=== PATIENT | female | born 2005 | race Caucasian/White ===

== ENCOUNTER 2025-01-14 01:10 | Outpatient (CLI) | payer OTHER, SELFPAY | END 2025-01-14 01:11 | disposition home or self-care (01) | LOC: AMB 01-17 11:32 | PROVIDERS: Visit Provider Family Medicine | DX: R41.82 Altered mental status, unspecified (principal); R11.10 Vomiting, unspecified | CPT/HCPCS: A0425; A0427 ==

== ENCOUNTER 2025-01-14 01:33 | Emergency (ER) | payer OTHER, SELFPAY ==
--- OUTSIDE RECORDS SUMMARY | 2024-12-14 15:00 | XMS_ITS | Encounter Summary ---
Author Organization [employer] Address [address], [place] [address] Care Team Providers Care Assistant Manager Pt Name Role Phone Michelle BAINS MD, Rory Saxena Primary Care Provider [phone] Reason for Visit * Reason Comments Annual Exam Encounter Details Date Type Department Care Team (Latest Contact Info) Description 12/14/2024 3:00 PM CDT Office Visit [facility] [address] [place] [address] Daniella Roque, SOFTWARE ENGINEER, JAVASCRIPT PROGRAMMER [address] [place] [address] Encounter for gynecological examination without abnormal finding (Primary Dx); Need for Tdap vaccination; Screening for malignant neoplasm of cervix; Surveillance of previously prescribed contraceptive pill Social History Tobacco Use Types Packs/Day Years Used Date Smoking Tobacco: Never Smokeless Tobacco: Never Comments:no vaping Alcohol Use Standard Drinks/Week Comments Yes 0 (1 standard drink = 0.6 oz pur e alcohol) 3-4 beers per month Comments No Sex and Gender Information Value Date Recorded Sex Assigned at Not on file Legal Sex Female 5:33 AM CDT Gender Identity Not on file Sexual Orientation Not on file Occupation Industry Job Start Date Job End Date student Not on file Not on file Not on file documented as of this encounter Last Filed Vital Signs Vital Sign Reading Time Taken Comments Blood Pressure 98/62 12/14/2024 2:53 PM CDT Pulse 63 12/14/2024 2:53 PM CDT Temperature - - Respiratory Rate - - Oxygen Saturation - - Inhaled Oxygen Concentration - - Weight 71.3 kg (157 lb 3.2 oz) 12/14/2024 2:53 P M CDT Height 165.1 cm (5' 5) 12/14/2024 2:53 PM CDT Body Mass Index 26.16 12/14/2024 2:53 PM CDT documented in this encounter Patient Instructions * Patient Instructions* Daniella Roque, RAMON, JAVASCRIPT PROGRAMMER - 12/14/2024 3:00 PM CDT Images from the original note were not included. Well Visit, Ages 18 to 65: Care Instructions Well visits can help you stay healthy. Your doctor has checked your overall health and may have suggested ways to take good care of yourself. Your doctor also may have recommended tests. You can helpprevent illness with healthy eating, good sleep, vaccinations, regular exercise, and other steps. Get the tests that you and your doctor decide on. Depending on your age and risks, examples might include screening for diabetes; hepatitis C; HIV; and cervical, breast, lung, and colon cancer. Screening helps find diseases before any symptoms appear. Eat healthy foods. Choose fruits, vegetables, whole grains, lean protein, and low-fat dairy foods. Limit saturated fat and reduce salt. Limit alcohol. Men should have no more than 2 drinks a day. Women should have no more than 1. For some people, no alcohol is the best choice. Exercise. Get at least 30 minutes of exercise on most days of the week. Walking can be a good choice. Reach and stay at your healthy weight. This will lower your risk for many health problems. Take care of your mental health. Try to stay connected with friends, family, and community, and find ways to manage stress. If you're feeling depressed or hopeless, talk to someone. A counselor can help. If you don't have acounselor, talk to your doctor. Talk to your doctor if you think you may have a problem with alcohol or drug use. This includes prescription medicines, marijuana, and other drugs. Avoid tobacco and nicotine: Don't smoke, vape, or chew. If you need help quitting, talk to your doctor. Practice safer sex. Getting tested, using condoms or dental dams, and limiting sex partners can help prevent STIs. Use control if it's important to you to prevent . Talk with your doctor about your choices and what might be best for you. Prevent problems where you can. Protect your skin from too much sun, wash your hands, brush your teeth twice a day, and wear a seat belt in the car. Where can you learn more? 1. Go to https://www.[employer]/healthlibrary. 2. Enter P072 in the search box. Current as of: September 14, 2023 Content Version: 14.5 ?? [id number] [employer]. Care instructions adapted under license by your healthcare professional. If you have questions about a medical condition or this instruction, always ask your healthcare professional. [employer] disclaims any warranty or liability for your use of this information. documented in this encounter Progress Notes * Daniella Roque APRN, CNP - 12/14/2024 3:00 PM CDT [facility] CC: Preventative exam SUBJECTIVE: Sylwia Mcdermott is a 19 y.o. who presents for preventive health examination. Current concerns: She is doing well. Continues to like her control pill. Remembers daily. Declines STD testing. Will do first pap smear today. Menses are regular and predictable Sexual activity: sexually active with male partner. Chlamydia Trachomatis STD Date Value Ref Range Status 05/12/2022 Not Detected Not Detected Final N. gonorrhoeae STD Date Value Ref Range Status 05/12/2022 Not Detected Not Detected Final Contraception: oral contraceptives. Nutrition/diet/weight concerns: no concerns . Present exercise habits: exercises moderately elevating heart rate 1-4 times a week.. Urinary Concerns: none Sexual concerns: none Screening Tests: Pap Smear History: 1st pap smear today Mammogram: n/a Lipid panel: Cholesterol Date Value Ref Range Status 2019 148 0 - 199 mg/dL Final HDL Cholesterol Date Value Ref Range Status 2019 55 >=40 mg/dL Final LDL, Calculated Date Value Ref Range Status 2019 81 <130 mg/dL Final Triglyceride Date Value Ref Range Status 2019 59 <=149 mg/dL Final Diabetes screening: No results found for: HGBA1C, [id number] Thyroid Screening: No results found for: TSH The medical, surgical, social and family histories were reviewed and upated. Review Of Systems With the exception of any items noted above, the remainder of the GI and ROS is negative. OBJECTIVE: BP 98/62 (BP Location: Right Arm, BP Cuff Size: Large) Pulse 63 Ht 5' 5 (1.651 m) Wt 157 lb 3.2 oz (71.3 kg) LMP 11/23/2024 (Exact Date) BMI 26.16 kg/m?? GENERAL: Healthy appearing, in no acute distress. Alert, oriented, cooperative throughout the exam.Affect is appropriate. HEENT: Eyes are normal with clear sclerae. Ears are symmetric. NECK: No thyromegaly or lymphadenopathy. No masses or tenderness. BREASTS: Symmetrical, nontender. No dominant masses, skin dimpling, nipple retraction or nipple discharge. No axillary lymphadenopathy. HEART: Regular rate and rhythm without murmurs. LUNGS: Clear to auscultation. Breathing is unlabored. ABDOMEN: Soft, non-tender, without hepatospenomegaly, masses or hernias. SKIN: Warm and dry without malignant appearing lesions. PELVIC EXAM: External genitalia within normal limits. Bartholin's, [place]'s, urethral meatus are allnormal. Normal vaginal mucosa and discharge. Cervix is without lesions. A Pap smear was obtained. RECTAL: rectal exam not indicated EXTREMITIES: Normal without varicosities or edema. ASSESSMENT/PLAN: Sylwia was seen today for annual exam. Diagnoses and all orders for this visit: Encounter for gynecological examination without abnormal finding Need for Tdap vaccination - Tdap Screening for malignant neoplasm of cervix - Cervical Cancer Screening; Obtain Prep&Convy-Lab - Cytology (Pap) Surveillance of previously prescribed contraceptive pill - levonorgestrel-ethinyl estrad (VIENVA) 0.1-20 MG-MCG tablet; Take 1 Tablet by mouth daily. Follow-up in 1 year; sooner as needed if any concerns Mollie R RAMON Roque CNP 12/14/2024, 3:07 PM documented in this encounter Plan of Treatment Not on file documented as of this encounter Procedures Procedure Name Priority Date/Time Associated Diagnosis Comments CYTOLOGY (PAP) Routine 12/14/2024 3:12 PM CDT Screening for malignant neoplasm of cervix documented in this encounter Results * Cytology (Pap) (12/14/2024 3:12 PM CDT) Case Report Pap Case: [id number] Authorizing Provider: Daniella Roque APRN, Collected: 12/14/2024 1512 JAVASCRIPT PROGRAMMER Ordering Location: [facility] Received: 12/14/2024 1558 [facility]etric[facility] ology First Screen: Katelin Elena Specimen: Pap Test, Routine, Cervix/Endocervix 12/29/2024 9:05 AM [facility] Pap Specimen Adequacy Satisfactory for evaluation, endocervical/dominguez sformation zone component present. 12/29/2024 9:05 AM [facility] Pap Interpretation (NILM) Negative for intraepithelial lesion or malignancy. 12/29/2024 9:05 AM [facility] at 0905 CDT Pap Disclaimer The Pap test is a screening test to aid in the detection of cervical and vaginal cancers and their precursor lesions. It is not a diagnostic procedure and should not be used as the sole means of detecting malignancy. Both false-positive and false-negative results may occur. 12/29/2024 9:05 AM [facility] Gross Description The specimen is received in SurePath fixative and properly labeled. 1 Pap-stained SurePath slide is prepared. 12/29/2024 9:05 AM [facility] Embedded Images 9:05 AM [facility] Other Specimen Type ENTIRE ENDOCERVIX / Unknown 12/14/2024 3:12 PM CDT 12/14/2024 3:58 PM CDT Comment:LMP: Patient's last menstrual period was 11/23/2024 (exact date). us Daniella Roque APRN, CNP LAB PATHOLOGY Ana l Result [facility] CLIA: [id number] [address] [id number] documented in this encounter Visit Diagnoses Diagnosis Encounter for gynecological examination without abnormal finding- Primary Routine gynecological examination Need for Tdap vaccination Need for prophylactic vaccination with combined [id number] (DTP) vaccine Screening for malignant neoplasm of cervix Screening for malignant neoplasm of the cervix Surveillance of previously prescribed contraceptive pill documented in this encounter Care Teams Assistant Manager Pt Relationship Specialty Start [place] [address] [facility] [place] [address] PCP - General 08/19/10 documented as of this encounter
--- NOTE | 2025-01-14 01:35 | ED.ALCOHOL ---
HPI - Alcohol General Time Seen by Provider: 01:35 Date Seen: 01/17/25 Chief Complaint: Alcohol/Intoxication Stated Complaint: intoxication Time Seen by Provider: 01/14/25 01:34 Source: patient, EMS, RN notes reviewed and old records reviewed Mode of arrival: EMS Limitations: no limitations History of Present Illness HPI narrative: 19-year-old female who presents today with alcohol intoxication. Brought in by ambulance, friends called because she was intoxicated. Has been drinking beer. Denies falls or injury, patient has no complaints. Related Data Allergies Allergy/AdvReac Type Severity Reaction Status Date / Time No Known Drug Allergies Allergy Verified 01/14/25 01:41 Exam Narrative: Exam Narrative: General: Well-developed and well-nourished, no acute distress Head: Atraumatic and normocephalic Eyes: Pupils are equal reactive, extraocular motions intact, conjunctiva clear ENT: External nose and ears are normal, posterior pharynx without erythema or exudate Neck: No midline cervical tenderness, full spontaneous range of motion the neck, trachea midline, no adenopathy Heart: Regular rate and rhythm no murmurs or thrills Lungs: Clear to auscultation bilaterally without wheezes or crackles Abdomen: Soft, nontender, nondistended with active bowel sounds Musculoskeletal: No tenderness, deformity, or edema Neurologic: Rouses easily to voice, moves all extremities Psych: Mood and affect are appropriate Skin: No rashes Const: Vital Signs, click to edit/add: Vital Signs - 24 hr 01/14/25 01:36 Temperature 97.3 F L Pulse Rate [Right Pulse Oximeter] 96 Respiratory Rate 16 Blood Pressure [Ri ght Upper Arm] 110/69 Pulse Oximetry 97 Oxygen Delivery Me thod Room Air Course Course ED Course: Reviewed most recent primary care visit from December 14 was a routine gynecologic exam with no abnormal findings, patient is continued on control pills. Patient seen examined, presents today with alcohol intoxication. No external signs of trauma no reported fall. Patient rouses to voice, moves all extremities. Will allow to sober and re-evaluate. Vital Signs Vital signs: Initial Vital Signs Temperature 97.3 F L 01/14/25 01:36 Temperature Source Temporal Artery Scan 01/14/25 01:36 Pulse Rate 96 01/14/25 01:36 Pulse Rhythm Regular 01/14/25 01:36 Pulse Strength 3+ Normal 01/14/25 01:36 Respiratory Rate 16 01/14/25 01:36 Blood Pressure 110/69 01/14/25 01:36 Blood Pressure Mean 82 01/14/25 01:36 Blood Pressure Position Sitting 01/14/25 01:36 Pulse Oximetry 97 01/14/25 01:36 Oxygen Delivery Method Room Air 01/14/25 01:36 Vital Signs Temperature 97.3 F L 01/14/25 01:36 Pulse Rate 96 01/14/25 01:36 Respiratory Rate 16 01/14/25 01:36 Blood Pressure 110/69 01/14/25 01:36 Pulse Oximetry 97 01/14/25 01:36 Oxygen Delivery Method Room Air 01/14/25 01:36 Temperature 97.3 F L 01/14/25 01:36 Pulse Rate 96 01/14/25 01:36 Respiratory Rate 16 01/14/25 01:36 Blood Pressure 110/69 01/14/25 01:36 Pulse Oximetry 97 01/14/25 01:36 Oxygen Delivery Method Room Air 01/14/25 01:36 Discharge Plan Discharge Clinical Impression: Alcoholic intoxication Patient Disposition: Home w/ Parent or Adult Condition: Stable Instructions: Alcohol Intoxication (DC) Additional Instructions: Lots of fluids and rest next 24 hours Activity Level: Activity as Tolerated Discharge Diet: Regular Stand Alone Forms: MyHealth Info Instructions
[2025-01-14 01:36] VITALS: BP 110/69; PULSE 96; RESP 16; TEMP 36.3; O2SAT 97; BMI 25.0
--- OUTSIDE RECORDS SUMMARY | 2025-01-14 02:51 | XMS_ITS | Encounter Summary ---
Author Organization [employer] Address [address] [address] Care Team Providers Care Cherry Dipper Name Role Phone Michelle BAINS MD, Rory Saxena Primary Care Provider [phone] Encounter Details Date Type Department Care Team (Late st Contact Info) Description 2003 Hospital External to Maureen Tadeo MD [facility] EXAM Social History Tobacco Use Types Packs/Day Years [...] on file documented as of this encounter Progress Notes * Maureen Tadeo - 2005 12:00 AM TECHNOLOGY PROGRAM MANAGER NOLOGY PROGRAM MANAGER documented in this encounter Plan of Treatment Not on file documented as of this encounter Visit Diagnoses Not on filedocumented in this encounter Care Teams Cherry Dipper Relationship Specialty Start [place] [address] [facility] [place] [address] PCP - General 08/19/10 documented as of this encounter
--- OUTSIDE RECORDS SUMMARY | 2025-01-14 02:51 | XMS_ITS | Encounter Summary ---
Author Organization [employer] Address [address], [place] [address] Care Team Providers Care Grinder Setup Operator Name Role Phone Michelle BAINS MD, Rory Saxena Primary Care Provider [phone] Encounter Details Date Type Department Care Team (Late st Contact Info) Description 12/29/2024 Results Follow-Up Cervical Cancer Screening and Management [address] [place], [place] [address] Janiya Etienne RN Social History Tobacco Use Types Packs/Day Years [...] on file documented as of this encounter Plan of Treatment Not on file documented as of this encounter Visit Diagnoses Not on filedocumented in this encounter Care Teams Grinder Setup Operator Relationship Specialty Start [place] [address] [facility] [place] [address] PCP - General 08/19/10 documented as of this encounter
--- OUTSIDE RECORDS SUMMARY | 2025-01-14 02:51 | XMS_ITS | Clinical Summary ---
Author Organization [facility] Address [address] [address] Care Team Providers Care Baking Assistant Name Role Phone Michelle BAINS MD, Rory Saxena Primary Care Provider [phone] Source Comments You are receiving this document as you are listed as the primary care provider,follow-up provider, or the patient has been referred to you for consultation.This is in compliance with the Medicare and[facility] [facility] [employer] Incent[employer],which states Providers who transition their patient to another setting of careor provider of care or refers their patient to another provider of care shouldprovide summary care record for each transition of care or referral. [facility] Allergies No known active allergies Medications levonorgestrel-eth inyl estrad (VIENVA) 0.1-20 MG-MCG tabletIndications: Surveillance of previously prescribed contraceptive pill Take 1 Tablet by mouth daily. 84 Tablet 3 5 Active Active Problems Problem Noted Date Diagnosed Date Injury of right elbow 07/27/2018 Assessment & Plan (07/27/2018 10:51 AM CDT): CHIEF COMPLAINT Sylwia Sparks is a 13 y.o. 2 m.o. old female here with her mother for an office visit on 07/27/2018 for evaluation and management of Elbow injury HISTORY PRESENT ILLNESS. This morning at 7:45 am as preparing to get on the school bus slipped on the ice and fell onto her back and right elbow. Did not hit head on ground. Immediately had some tingling down forearm on radial side. That resolved. However pain continued. Has pain in the medial aspect of the right elbow. Tender also. No swelling or bruising. 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 PHYSICAL EXAMINATION Vital Signs Blood pressure 102/56, pulse 72, height 5' 5.24 (165.7 cm), weight 136 lb 11.2 oz (71806 g). Blood pressure percentiles are 24 % systolic and 15 % diastolic based on the December 2016 AAP Clinical Practice Guideline. Vision and Hearing No exam data present Constitutional: Appears well nourished and developed Psychiatric: Alert. In no distress Head: Normocephalic Eyes: Moist and clear. Musculoskeletal: Mild to moderate tenderness between olecranon right ulna and and medial epicondyle of right humerus but no tenderness over either the olecranon or medial epicondyle itself. No pain or tenderness anywhere else in the elbow No bruising or swelling Full range of motion at the elbow Radial and ulna pulses intact Sensation intact in the hand and fingers LABORATORY Xray of right elbow ASSESSMENT Elbow contusion PLAN. Reassurance Return to regular activities as tolerated. 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 No throat/airway sx, no urticaria. No FHx of food allergy. Closed fracture of nasal bone 02/14/2016 Overview (02/18/2016): Injury occurred 02/08/2016, while playing soccer. See Dr. Perez's (ENT) note Constipation 12/23/2015 Assessment & Plan (12/23/2015 3:25 PM CDT): Preventative medicine visit on 12/23/2015 at 10 y.o. 7 m.o.. 2 month history of infrequent passage of stool going as long as 2 weeks between stools. As time goes by without passage of stool she develops the symptom of crampy abdominal pain. She is observed that this abdominal pain resolves following passage of the stool. She has been using fiber bars as an intervention. Recommended Nayla lax 1 tablespoon daily for one month and if effective then wean by halves every other week. BMI (body mass index), micky tric, 85% to less than 95% for age 0711/23/2014 Overview (01/16/2016): 87% on 11/23/2014 Menarche 06/26/2014 Overview (01/16/2016): by pt and parent's report Cardiovascular risk factor 06/04/2008 Overview (01/16/2016): dad was on meds; pt with normal cholesterol, but high triglycerides in 2008. Assessment & Plan (12/23/2015 3:18 PM CDT): Preventative medicine visit on 12/23/2015 at 10 y.o. 7 m.o.. Father has a history of borderline elevation of cholesterol. He is on medications because of the concern that the borderline cholesterol in association with elevated blood pressure would put him at high enough risk for later cardiovascular events that treating the cholesterol would be rational thing to do. Patient herself had a lipid profile performed 2008. Cholesterol fraction was normal but triglycerides were elevated. The blood was drawn at 4:30 in the afternoon so it was probably a nonfasting cholesterol and that is most likely the cause of the elevated triglycerides. Primary care provider ordered a cholesterol a year ago but it has not been performed. Mother's cholesterol is within normal limits. No family history of heart attack or stroke among 1st and second-degree family members. Plan is for the recommended universal cholesterol screen sometime between ages 17 and 21. In the meantime healthy diet, regular exercise, maintenance of healthy weight and no smoking. Contact dermatitis and eczema 05/28/2006 Overview (01/06/2017): Eczema Assessment & Plan (12/23/2015 3:19 PM CDT): Preventative medicine visit on 12/23/2015 at 10 y.o. 7 m.o.. Still has a history of recurrent episodes of eczema typically in the antecubital fossa. Managed with moisturizing agents. Resolved Problems Problem Noted Date Diagnosed Date Resolved Date Body mass index, pediatric, greater than or equal to 95th percentile for age 0106/04/2008 015 Overview (01/06/2017): LW Modifier: again counselled on lifestyle issues ; BMI Pediatric 95% or > for age Encounters Date Type Department Care Team Description 12/29/2024 Results Follow-Up Cervical Cancer Screening and Management [address] [place] [address] Janiya Etienne RN 12/14/2024 3:00 PM CDT Office Visit [facility] [address] [place] [address] Daniella Roque APRN, [employer] Encounter for gynecological examination without abnormal finding (Primary Dx); Need for Tdap vaccination; Screening for malignant neoplasm of cervix; Surveillance of previously prescribed contraceptive pill 11/17/2024 Refill [facility] [address] [place] [address] Daniella Roque, HAND SPLITTER, [employer] Refill (VIENVA 0.1-20 MG-MCG tablet [Pharmacy Med Name: VIENVA-28 TABLET]) 11/07/2024 Refill [facility] [address] [place] [address] Daniella Roque, HAND SPLITTER, [employer] Refill from Last 3 Months Immunizations Immunization Administration Dates Next Due 4vHPV (Gardasil) 11/23/2014 9vHPV (Gardasil 9) 12/23/2015 DTaP 05/20/2007, 4,2003,2003,2003,2003,2003 DTaP/Hib 09/30/2004 Flu Vac (6-35 mo) 03/24/2004 Flu Vac Preserv Free (6-35 mo) 6,03/24/2004,02/20/2004,2003 HepA Ped/Adol (1-18 yrs) 06/04/2008,05/20/2007 Hib/HBV 05/20/2004, 5,2003,2003,2003,2003 IPV (Polio) 05/20/2007, 4,2003,2003,2003,2003,2003 Influenza (Flucelvax), Prese rv Free QIV 02/11/2020 Influenza IIV4 (Quadrivalent ) 0.5mL ([id number]) 05/05/2022,2019 MCV4 Menveo 2m.+ (two vial) 2019, 5 MMR 06/04/2008,05/20/2004,05/20/2004 Pfizer Bivalent 12+ 02/27/2022 Pfizer Monovalent 12+ 07/16/2021 Pfizer Monovalent 12+ Purple Top 09/14/2020,08/15 Pneumococcal 7, PED 05/20/2004, 5,02/20/2004,2003,2003,2003,2003,0 2003 TDAP (BOOSTRIX) 11/23/2014 Tdap 12/14/2024 Varicella 06/04/2008,09/30/2004 Family History Medical History Relation Name Comments Adopted Father Lele Diabetes Father Lele High Cholesterol Father Lele on meds No Known Problems Mother Cancer Maternal Grandfather Cancer, Skin Maternal Grandfather MELANOM A in maternal grandfather Heart Disease Maternal Grandmother No Known Problems Paternal Grandfather Diabetes Paternal Grandmother Relation Name Status Comments Father Lele Alive Mother Alive Maternal Grandfather Alive Maternal Grandmother Alive Paternal Grandfather Alive Paternal Grandmother Alive Sister Alive Social History Tobacco Use Types Packs/Day Years [...] file Not on file Not on file Last Filed Vital Signs Vital Sign Reading Time Taken Comments Blood Pressure 98/62 12/14/2024 2:53 PM CDT Pulse 63 12/14/2024 2:53 PM CDT Temperature 36.9 C (98.4 F) 11/30/2018 8:15 AM CDT Respiratory Rate 16 11/30/2018 8:15 AM CDT Oxygen Saturation 100% 11/30/2018 8:15 AM CDT Inhaled Oxygen Concentration - - Weight 71.3 kg (157 lb 3.2 oz) 12/14/2024 2:53 P M CDT Height 165.1 cm (5' 5) 12/14/2024 2:53 PM CDT Body Mass Index 26.16 12/14/2024 2:53 PM CDT Plan of Treatment Health Maintenance Due Date Last Done Comments Hep C Screening (Preventive Services) 2003 MenB Immunization Discussion 2003 Chlamydia 05/12/2023 05/12/2022, 2019 COVID-19 Vaccine ( season) 2024 02/27/2022, 07/16/2021, 09/14/2020, Additional history exists Influenza Vaccine (#1) 2025 2, 02/11/2020, 2019, Additional history exists Adult Preventive Visit 12/14/2025 , 07/21/2023, 05/12/2022, Additional history exists Cervical Cancer Screening 12/15/2027 12/14/2024 DTaP/Tdap/Td Vaccine (8 - Tdap) 12/14/2034 12/14/2024, 11/23/2014, 05/20/2007, Additional history exists Zoster/Shingles Vaccine (1 of 2) 2053 HepB Vaccine Completed 05/20/2004, 08/2004, 2003, Additional history exists Pneumococcal Vaccine Aged Out 05/20/2004, 05/20/2004, 02/20/2004, Additional history exists No longer eligible based on patient's age to complete this topic Hib Vaccine Completed 09/30/2004, 08/2004, 05/20/2004, Additional history exists IPV (Polio) Vaccine Completed 05/20/2007, 2003, 2003, Additional history exists HepA Vaccine Completed 06/04/2008, 05/20/2007 Varicella Vaccine Completed 06/04/2008, 09/30/2004 HPV Vaccine Completed 12/23/2015, 11/23/2014 HIV Screening (Preventive Services) Completed 2019 MCV4 Vaccine Completed 2019, 11/23/2014 Procedures Procedure Name Priority Date/Time Associated Diagnosis Comments CYTOLOGY (PAP) Routine 12/14/2024 3:12 PM CDT Screening for malignant neoplasm of cervix CHLAMYDIA & GC (14 YEARS & OLDER) Routine 05/12/2022 2:37 PM MANDOLIN REPAIR PERSON Screening examination for venereal disease HIV 1/2 AG/AB 4TH GEN Routine 2019 2:39 PM MANDOLIN REPAIR PERSON Screening for HIV (human immunodeficiency virus) from Last 3 Months or Most Recently Relevant to Health Maintenance Results * Cytology (Pap) (12/14/2024 3:12 PM CDT) Case Report Pap Case: [id number] Authorizing Provider: Daniella Roque APRN, Collected: 12/14/2024 1512 [employer] Ordering Location: [facility] Received: 12/14/2024 [facility] First Screen: Katelin Elena Specimen: Pap Test, Routine, Cervix/Endocervix 12/29/2024 9:05 AM T [facility] Pap Specimen Adequacy Satisfactory for evaluation, endocervical/dominguez sformation zone component present. 12/29/2024 9:05 AM T [facility] Pap Interpretation (NILM) Negative for intraepithelial lesion or malignancy. 12/29/2024 9:05 AM [facility] at 0905 CDT Pap Disclaimer The Pap test is a screening test to aid in the detection of cervical and vaginal cancers and their precursor lesions. It is not a diagnostic procedure and should not be used as the sole means of detecting malignancy. Both false-positive and false-negative results may occur. 12/29/2024 9:05 AM T [facility] Gross Description The specimen is received in SurePath fixative and properly labeled. 1 Pap-stained SurePath slide is prepared. 12/29/2024 9:05 AM CDT [facility] Embedded Images 9:05 AM T [facility] Other Specimen Type ENTIRE ENDOCERVIX / Unknown 12/14/2024 3:12 PM CDT 12/14/2024 3:58 PM CDT Comment:LMP: Patient's last menstrual period was 11/23/2024 (exact date). us Daniella Roque APRN, CNP LAB PATHOLOGY Ana l Result Performing Organization Address City/[facility]/ZIP Co de Phone Number [facility] CLIA: [id number] [address] * CHLAMYDIA & GC (05/12/2022 2:37 PM MANDOLIN REPAIR PERSON) Pathologist [facility] Chlamydia Trachomatis STD Not Detected Not Detected 05/13/2022 12:18 PM MANDOLIN REPAIR PERSON [facility] N. gonorrhoeae STD Not Detected Not Detected 05/13/2022 12:18 PM MANDOLIN REPAIR PERSON [facility] Swab STD SPECIMEN FROM VAGINA / Unknown Non-blood Collection / Unknown 05/12/2022 2:37 PM MANDOLIN REPAIR PERSON 05/12/2022 3:10 PM MANDOLIN REPAIR PERSON Narrative [facility] - 05/13/2022 12:18 PM MANDOLIN REPAIR PERSON Test performed by [employer] Mediated Amplification (TMA). us Daniella Roque APRN, CNP LAB_1 Ana l Result Performing Organization Address City/[facility]/ZIP Co de Phone Number [facility] [address] [phone] * HIV 1/2 Ag/Ab 4th Generation (2019 2:39 PM MANDOLIN REPAIR PERSON) Pathologist [facility] HIV 1/2 Antigen/Antib ny (4th generation) Negative (Non Reactive) Negative (Non Reactive) 2019 6:56 PM MANDOLIN REPAIR PERSON [facility] Comment:HIV-1 p24 Antigen an d HIV-1/HIV-2 Antibody not detected Blood Venipuncture / Unknown 2019 2:39 PM MANDOLIN REPAIR PERSON 2019 2:39 PM MANDOLIN REPAIR PERSON us Rory Martinez III, MD LAB_1 Final Res ult [facility] [address] [address] from Last 3 Months or Most Recently Relevant to Health Maintenance Insurance [facility] FULLY INSURED [place] [employer] INSURED PREVENTIVE FI DENTAL Care Teams Baking Assistant Relationship Specialty Start [place] [id number] [facility] [place] [id number] PCP - General 08/19/10
== END 2025-01-14 03:50 | disposition home or self-care (01) ==
LOC: ED 02:50
PROVIDERS: Emergency Provider Family Medicine
DX: F10.129 Alcohol abuse with intoxication, unspecified (principal)
CPT/HCPCS: 99282; 99284